=== PATIENT | male | born 1995 | race Caucasian/White ===

== ENCOUNTER 2023-05-25 12:36 | Emergency (ER) | payer SELFPAY ==
[2023-05-25] MEDS ORDERED: Sodium Chloride 0.9% 2.5 ML Syringe FLUSH PRN (13:01)
[2023-05-25] MEDS ORDERED: Sodium Chloride 0.9% 10 ML Syringe FLUSH PRN (13:01)
[2023-05-25] MEDS ORDERED: Ampicillin/Sulbactam Na 3 GM in Sodium Chloride 0.9% 100 ML IV STA (13:04)
[2023-05-25] MEDS ORDERED: Dexamethasone 10 MG/ML SDV IVPUSH STA (13:05)
[2023-05-25] MEDS ORDERED: Ketorolac 30 MG/ML SDV IVPUSH STA (13:06)
[2023-05-25] MEDS ORDERED: Sodium Chloride 0.9% 1,000 ML IV STA ×3 (13:07→14:52)
[2023-05-25 13:26] LABS: BASOPHILS PERCENT AUTO 0.1 % (0.0-1.5); EOSINOPHILS ABSOLUTE AUTO 0.2 K/uL (0.0-0.7); EOSINOPHILS PERCENT AUTO 1.1 % (0.0-7.0); HEMATOCRIT 45.7 % (38.0-50.0); HEMOGLOBIN 15.8 g/dL (13.0-17.0); LYMPHOCYTES ABSOLUTE AUTO 1.5 K/uL (0.6-2.4); LYMPHOCYTES PERCENT AUTO 8.9 % (16.0-40.0); MEAN CORPUSCULAR HGB CONC 34.6 g/dL (31.0-37.0); MEAN CORPUSCULAR VOLUME 86.9 fL (80.0-98.0); MONOCYTES ABSOLUTE AUTO 1.3 K/uL (0.0-0.8); MONOCYTES PERCENT AUTO 7.8 % (0.0-15.0); NEUTROPHILS ABSOLUTE AUTO 13.8 K/uL (1.4-5.7); NEUTROPHILS PERCENT AUTO 82.1 % (48.0-80.0); NRBC ABSOLUTE 0 K/uL; PLATELET COUNT,PLT 272 K/uL (150-400); RED BLOOD CELL COUNT 5.26 M/uL (4.50-5.90); WHITE BLOOD CELL COUNT,WBC 16.76 K/uL (4.0-11.0)
[2023-05-25] MEDS: Acetaminophen 500 MG Tab PO STA ×2 (13:26→13:45)
[2023-05-25 13:40] LABS: INR 0.96 (0.86-1.11)
[2023-05-25 13:48] LABS: A/G RATIO 1.1 (0.9-1.6); ALBUMIN 4.1 g/dL (3.4-5.0); BILIRUBIN TOTAL 0.4 mg/dL (0.2-1.0); CALCIUM 9.1 mg/dL (8.5-10.1); CARBON DIOXIDE,CO2 23.2 mmol/L (21.0-32.0); CREATININE 0.8 mg/dL (0.8-1.3); EST CRCL DRUG DOSING (CG) 121.72 mL/min; MAGNESIUM 1.7 mg/dL (1.8-2.4); POTASSIUM,K 3.7 mmol/L (3.5-5.1); PROTEIN TOTAL,TP 7.7 g/dL (6.4-8.2)
[2023-05-25] MEDS ORDERED: Magnesium Sulfate/Water 2 GM in Premix Bag 1 BAG IV STA (13:54)
[2023-05-25] MEDS ORDERED: Iopamidol 755 MG/ML 500 ML Multipack Bottle IVPUSH ONE (15:05)
== END 2023-05-25 17:09 | disposition home or self-care (01) ==
LOC: MW.ED 12:36
DX: J03.90 Acute tonsillitis, unspecified (principal)
CPT/HCPCS: 36415; 70491; 71260; 80053; 83605; 83735; 85025; 85610; 86308; 87040; 87651; 96361; 96365; 96367; 96375; 99285; J0295; J1100; J1885; J3475; J3490; J7030; Q9967; 99284; A9270-GY

== ENCOUNTER 2025-10-13 16:12 | Emergency (ER) | payer BC, OTHER | END 2025-10-13 18:55 | disposition home or self-care (01) | LOC: MW.ED 16:12 | DX: J03.90 Acute tonsillitis, unspecified (principal); Z79.899 Other long term (current) drug therapy | CPT/HCPCS: 70360; 70360-26; 87651; 99283 ==